=== PATIENT | female | born 1965 | race Caucasian/White ===

== ENCOUNTER → 2016-08-04 | Outpatient (CLI) | payer MEDICARE, MEDICAID ==
[~2016-08-04] MED LIST: AMIT-46 PO; AMIT100T35 PO; DIPH50CA34 PO; GABA-190 PO; HYDR1TAB73 PO; INVEGA PO; MIRT30TA72; SYNTHROID; WATER PILL; ZIPR20CA9 PO
[2016-08-04 14:05] LABS: BASOPHILS % (AUTO) 0.4 % (0-2); EOSINOPHILS % (AUTO) 0.6 % (0-4); HCT - HEMATOCRIT 40.4 % (36-46); IMMATURE GRANULOCYTE # (AUTO) 0.01 T/MM3 (0.00-0.03); IMMATURE GRANULOCYTE % (AUTO) 0.2 % (0.0-0.5); LYMPHOCYTES # (AUTO) 0.7 T/MM3 (1-4.8); LYMPHOCYTES % (AUTO) 12.6 % (23-45); MEAN CORPUSCULAR HGB 34.9 UUG (26-34); MEAN CORPUSCULAR HGB CONC(MCHC 34.7 GM/DL (31-37); MEAN CORPUSCULAR VOLUME 100.7 UM3 (80-100); MEAN PLATELET VOLUME 11.1 UM3 (9.4-12.4); MONOCYTES # (AUTO) 0.3 T/MM3 (0-0.8); MONOCYTES % (AUTO) 5.7 % (0-9.0); NEUTROPHILS #(AUTO)-ABSOLUTE 4.4 T/MM3 (1.8-7.7); NEUTROPHILS % (AUTO) 80.5 % (33-66); RED BLOOD COUNT 4.01 M/MM3 (4.00-5.20); WBC - WHITE BLOOD COUNT 5.4 T/MM3 (4.5-11.0)
[2016-08-04 14:15] LABS: ALBUMIN 4.5 G/DL (3.5-5.0); ALBUMIN/GLOBULIN RATIO 1.4 RATIO (1.1-2.2); ALKALINE PHOSPHATASE 74 U/L (38-126); ALT (SGPT) 67 U/L (9-52); ANION GAP 12 MEQ/L (5-15); AST (SGOT) 49 U/L (14-36); BUN/CREATININE RATIO 20 RATIO (6-26); CHLORIDE 103 MEQ/L (98-107); CO2 - CARBON DIOXIDE 27 MEQ/L (22-30); CREATININE 0.7 MG/DL (0.7-1.2); GLOMERULAR FILTRATION RATE 89; GLUCOSE 121 MG/DL (65-110); POTASSIUM 4.1 MEQ/L (3.6-5); SODIUM 142 MEQ/L (134-144); TOTAL PROTEIN 7.7 G/DL (6.3-8.2)
--- NOTE | 2016-08-04 14:34 | DI ---
EXAM: ABDOMEN ACUTE (INC. CHEST) DICTATION LOCATION: [place] INDICATION: ITS.REASON: K59.00 Constipation, unspecified; R11.0 Nausea COMPARISON STUDY: None available. FINDINGS: Chest: The heart size is normal. The lungs are clear. Abdomen: Nonobstructive bowel gas pattern. No intraperitoneal free air. Mild retained fecal material. Skeletal Structures: The visualized skeletal structures are within normal limits for the patient's age. IMPRESSION: 1. Nonobstructive bowel gas pattern. Mild fecal retention. 2. No acute cardiopulmonary process. .
[2016-08-04 15:41] LABS: THYROID STIM HORMONE-TSH 3.39 MIU/L (0.47-4.68)
== END ==
LOC: IMA 13:38
PROVIDERS: ATTEND Physician Assistant
DX: K59.00 Constipation, unspecified (principal); E03.9 Hypothyroidism, unspecified; R06.02 Shortness of breath; R11.0 Nausea
CPT/HCPCS: 36415; 80053; 84443; 85025